=== PATIENT | male | born 1950 | race Caucasian/White ===

== ENCOUNTER 2018-08-05 07:59 | Day surgery (SDC) | payer BC, MEDICARE ==
[~2018-08-05] VITALS: Ht 190.5 cm; Wt 153.4 kg
[2018-08-05] VITALS (15 sets, daily range): BP systolic 119–183; BP diastolic 55–113
[2018-08-05] MEDS ORDERED: normal saline 1000ml 1,000 ML IV SCH (08:20)
[2018-08-05] MEDS ORDERED: fentaNYL/PF 50MCG/1 ML 2ML syringe IV ONE (08:25)
[2018-08-05 08:42] LABS: BASOPHILS # (AUTO) 0.1 X10'3 (0-0.2); BASOPHILS % (AUTO) 1.1 % (0-1); EOSINOPHILS # (AUTO) 0.5 X10'3 (0-0.9); EOSINOPHILS % (AUTO) 6.5 % (0-6); HEMATOCRIT 55.1 % (42.0-52.0); LYMPHOCYTES # (AUTO) 1.7 X10'3 (1.1-4.8); LYMPHOCYTES % (AUTO) 23.4 % (21-51); MEAN CORPUSCULAR HEMOGLOBIN 29.6 PG (27.0-31.0); MEAN CORPUSCULAR HGB CONC 32.7 % (33.0-36.5); MEAN CORPUSCULAR VOLUME 90.5 FL (78-98); MEAN PLATELET VOLUME 7.6 FL (7.4-10.4); MONOCYTES # (AUTO) 0.9 X10'3 (0-0.9); MONOCYTES % (AUTO) 11.7 % (2-12); NEUTROPHILS # (AUTO) 4.3 X10'3 (1.8-7.7); NEUTROPHILS % (AUTO) 57.3 % (42-75); PLATELET COUNT 243 X10'3 (140-440); RED BLOOD COUNT 6.08 X10'6 (4.70-6.10); RED CELL DISTRIBUTION WIDTH 14.8 % (11.5-14.5); WHITE BLOOD COUNT 7.4 X10'3 (4.5-11.0)
[2018-08-05] MEDS ORDERED: HYDR-4353 PO (08:49)
[2018-08-05] MEDS ORDERED: FURO-150 PO (08:49)
[2018-08-05] MEDS ORDERED: FAMO20TA8 PO (08:49)
[2018-08-05] MEDS ORDERED: APIX5TAB3 PO (08:49)
[2018-08-05] MEDS ORDERED: PROP225C8 PO (08:49)
[2018-08-05] MEDS ORDERED: FENO145T38 PO (08:49)
[2018-08-05] MEDS ORDERED: DIAZ10TA4 PO (08:49)
[2018-08-05] MEDS ORDERED: ROSU5TAB PO (08:49)
[2018-08-05] MEDS ORDERED: NADO20TA PO (08:49)
[2018-08-05 08:55] LABS: ALBUMIN 3.5 G/DL (3.4-5.0); ANION GAP 8 (8-16); BLOOD UREA NITROGEN 24 MG/DL (7-18); BUN/CREATININE RATIO 16.1 (5.4-32.0); CALCIUM 9.2 MG/DL (8.5-10.1); CHLORIDE 104 MMOL/L (99-107); CREATININE 1.49 MG/DL (0.60-1.10); GLUCOSE 132 MG/DL (70-104); MAGNESIUM 2.5 MG/DL (1.5-2.4); POTASSIUM 3.4 MMOL/L (3.5-5.1); SODIUM 140 MMOL/L (135-145); TOTAL CARBON DIOXIDE 28.3 MMOL/L (24-32); eGFR 47 ML/MIN
[2018-08-05] MEDS ORDERED: propofol 10mg/ml 20ml vial IV ONE (08:55)
[2018-08-05 09:12] LABS: INR 1.1 INR
== END 2018-08-05 11:15 | disposition home or self-care (01) ==
LOC: SSTAY O 07:59
PROVIDERS: ATTEND Internal Medicine Cardiovascular Disease
DX: I48.4 Atypical atrial flutter (principal); I48.91 Unspecified atrial fibrillation; I45.19 Other right bundle-branch block; I25.10 Atherosclerotic heart disease of native coronary artery without angina pectoris; I10 Essential (primary) hypertension; E78.5 Hyperlipidemia, unspecified; K21.9 Gastro-esophageal reflux disease without esophagitis; M19.90 Unspecified osteoarthritis, unspecified site; Z79.891 Long term (current) use of opiate analgesic; Z90.89 Acquired absence of other organs; Z87.891 Personal history of nicotine dependence; Z79.01 Long term (current) use of anticoagulants; Z79.899 Other long term (current) drug therapy; Z98.890 Other specified postprocedural states; Z82.49 Family history of ischemic heart disease and other diseases of the circulatory system; Z83.42 Family history of familial hypercholesterolemia; Z80.9 Family history of malignant neoplasm, unspecified
CPT/HCPCS: 36415; 80048; 83735; 85025; 85610; 92960; 93005; J2704; J3010; J7030

== ENCOUNTER 2024-02-04 13:42 | Emergency (ER) | payer MEDICARE ==
[~2024-02-04] VITALS: Ht 190.5 cm; Wt 111.4 kg
[~2024-02-04 13:42] MED LIST: APIX5TAB3 PO; BIOT5000 PO; BUDE10.7 PO; DIAZ-546 PO; EZET10TA48 PO; FAMO20TA8 PO; FENO145T38 PO; FEXO-271 PO; FLO0.4C PO; FURO-150 PO; HYDR-4353 PO; LEVA15HF6 PO; LEVO75TA7 PO; MAGN500C4 PO; NADO20TA36 PO; POTASSIUM CITRA; TEST100V11 IM; UBID50TA3 PO
[2024-02-04 13:51] VITALS: BP 162/86; PULSE 71; RESP 16; TEMP 98.4; O2SAT 98
[2024-02-04] MEDS: LidoCAINE 2% Topical Jelly 11mL syringe (UROJET) TOP ONE (15:12)
[2024-02-04] MEDS ORDERED: LEVO-65 PO (16:22)
== END 2024-02-04 16:45 | disposition home or self-care (01) ==
LOC: ER 13:43
DX: R33.9 Retention of urine, unspecified (principal); Z79.899 Other long term (current) drug therapy
CPT/HCPCS: 51702; 99284

== ENCOUNTER 2024-08-02 10:00 | Day surgery (SDC) | payer MEDICARE ==
[~2024-08-02] VITALS: Ht 190.5 cm; Wt 116.2 kg
[2024-08-02] MEDS ORDERED: fentaNYL/PF 50MCG/1 ML 2ML syringe IV ONE (10:25)
[2024-08-02 10:32] VITALS: BP 140/82; PULSE 80; RESP 12; TEMP 98.9; O2SAT 95
[2024-08-02 10:55] LABS: BASOPHILS % (AUTO) 0.7 % (0-1); EOSINOPHILS # (AUTO) 0.2 X10'3 (0-0.9); EOSINOPHILS % (AUTO) 3.5 % (0-6); HEMATOCRIT 48.8 % (42.0-52.0); HEMOGLOBIN 16.3 g/dl (14.0-17.9); LYMPHOCYTES # (AUTO) 1.5 X10'3 (1.1-4.8); LYMPHOCYTES % (AUTO) 21.9 % (21-51); MEAN CORPUSCULAR HEMOGLOBIN 30.4 PG (27.0-31.0); MEAN CORPUSCULAR HGB CONC 33.4 g/dL (33.0-36.5); MONOCYTES # (AUTO) 0.8 X10'3 (0-0.9); MONOCYTES % (AUTO) 11.4 % (2-12); NEUTROPHILS # (AUTO) 4.2 X10'3 (1.8-7.7); NEUTROPHILS % (AUTO) 62.5 % (42-75); PLATELET COUNT 262 X10'3 (140-440); RED BLOOD COUNT 5.36 X10'6 (4.70-6.10); RED CELL DISTRIBUTION WIDTH 15.1 % (11.5-14.5); WHITE BLOOD COUNT 6.7 X10'3 (4.5-11.0)
[2024-08-02] MEDS ORDERED: RYT225T PO (11:03)
[2024-08-02 11:08] LABS: ALBUMIN 3.6 G/DL (3.4-5.0); ANION GAP 10 (8-16); BLOOD UREA NITROGEN 20 MG/DL (7-18); BUN/CREATININE RATIO 17.4 (10.0-20.0); CALCIUM 9.4 MG/DL (8.5-10.1); CHLORIDE 109 MMOL/L (99-107); CREATININE 1.15 MG/DL (0.60-1.10); GLUCOSE 108 MG/DL (70-104); MAGNESIUM 2.4 MG/DL (1.5-2.4); POTASSIUM 4.2 MMOL/L (3.5-5.1); SODIUM 143 MMOL/L (135-145); TOTAL CARBON DIOXIDE 24.2 MMOL/L (24-32); eCRCL 68 ML/MIN; eGFR 62 ML/MIN
[2024-08-02 11:52] LABS: INR 1.1 INR; PROTHROMBIN TIME 11.3 SECONDS (9.0-12.0)
[2024-08-02 11:53] VITALS: BP 147/89; PULSE 80; RESP 12; O2SAT 97
[2024-08-02 11:55] VITALS: BP 134/82; PULSE 88; RESP 12; O2SAT 98
[2024-08-02 11:57] VITALS: BP 129/83; PULSE 87; RESP 12; O2SAT 98
[2024-08-02 11:59] VITALS: BP 124/77; PULSE 80; RESP 12; O2SAT 98
[2024-08-02 12:01] VITALS: BP 128/75; PULSE 81; RESP 12; O2SAT 98
[2024-08-02] MEDS: normal saline 1000ml 1,000 ML IV SCH (12:18)
[2024-08-02] MEDS: MIDAZolam 1mg/ml 10ml vial IV ONE (12:18)
== END 2024-08-02 12:19 | disposition home or self-care (01) ==
LOC: SSTAY O 10:00
PROVIDERS: ATTEND Internal Medicine Cardiovascular Disease
DX: I48.91 Unspecified atrial fibrillation (principal); I48.3 Typical atrial flutter; R94.31 Abnormal electrocardiogram [ECG] [EKG]; I10 Essential (primary) hypertension; I45.10 Unspecified right bundle-branch block; I25.10 Atherosclerotic heart disease of native coronary artery without angina pectoris; E78.00 Pure hypercholesterolemia, unspecified; K21.9 Gastro-esophageal reflux disease without esophagitis; F10.90 Alcohol use, unspecified, uncomplicated; Z90.89 Acquired absence of other organs; Z87.891 Personal history of nicotine dependence; Z98.890 Other specified postprocedural states; Z79.899 Other long term (current) drug therapy; Z82.49 Family history of ischemic heart disease and other diseases of the circulatory system
CPT/HCPCS: 36415; 80048; 83735; 85025; 85610; 92960; 93005; J2250; J7030; 99152

== ENCOUNTER 2024-08-02 12:25 | Emergency (ER) | payer MEDICARE ==
[~2024-08-02] VITALS: Ht 190.5 cm; Wt 97.7 kg
[~2024-08-02 12:25] MED LIST changes: +RYT225T PO
[2024-08-02 12:34] VITALS: TEMP 98.5
[2024-08-02] MEDS: propofol 10mg/ml 20ml vial IV ONE (13:16)
[2024-08-02 14:24] VITALS: BP 125/78; PULSE 63; RESP 12; O2SAT 97
== END 2024-08-02 14:33 | disposition home or self-care (01) ==
LOC: ER 12:25
DX: I48.91 Unspecified atrial fibrillation (principal); Z88.8 Allergy status to other drugs, medicaments and biological substances; Z88.5 Allergy status to narcotic agent; Z79.899 Other long term (current) drug therapy
CPT/HCPCS: 92960; 93005; 99152; 99285; A4620; J2704